=== PATIENT | female | born 1965 | race Caucasian/White ===

== ENCOUNTER 2017-07-04 18:46 | Emergency (ER) | payer OTHER ==
[~2017-07-04] VITALS: Ht 152.4 cm; Wt 112.3 kg
[~2017-07-04 18:46] MED LIST: ADVIN25/60 INH; IBUP-1450 PO; PRLSR20 PO
[2017-07-04 18:54] VITALS: TEMP 37; Ht 152.4 cm; Wt 112.3 kg
[2017-07-04] MEDS ORDERED: KETOROLAC TROMETHAMINE 30 MG/ML VIAL IV STA (19:03)
[2017-07-04] MEDS ORDERED: CLINDAMYCIN IV 900 MG in DEXTROSE 5% 100ML 100 ML IV ONE (19:15)
[2017-07-04] MEDS ORDERED: SODIUM CHLORIDE 0.9% 1000ML 1,000 ML IV ONE (19:15)
[2017-07-04] MEDS ORDERED: SULF800T23 PO (19:20)
[2017-07-04] MEDS ORDERED: KFL500HP PO (19:20)
[2017-07-04] MEDS ORDERED: BCTROWC TOP (19:20)
[2017-07-04] MEDS ORDERED: AZEL0.056 NAE (19:21)
[2017-07-04 19:42] LABS: BASO % 0.1 %; BASO ABS # 0.02 K/uL (0-0.2); COMPLETE YES; EOS % 1.7 %; HEMATOCRIT 37.5 % (37-47); IG% 0.4 %; LYMPH % 9.8 %; LYMPH ABS # 1.61 K/uL (1.2-3.4); MEAN CORPUSCULAR HEMOGLOBIN 31.3 pg (25-34); MEAN CORPUSCULAR HGB CONC 34.4 g/dl (32-36); MEAN PLATELET VOLUME 11.1 fL (7.4-10.4); MONO % 4.8 %; NEUT % 83.2 %; PLATELET COUNT 252 K/uL (130-400); RED BLOOD COUNT 4.12 M/uL (4.2-5.4); WHITE BLOOD COUNT 16.41 K/uL (4.8-10.8)
[2017-07-04 19:59] LABS: CREATININE 0.61 mg/dl (0.60-1.20); POTASSIUM 3.3 mmol/L (3.5-5.1)
[2017-07-04 20:02] LABS: ALB/GLOB RATIO 0.9 (0.9-2)
--- NOTE | 2017-07-04 20:12 | DIAGNOSTIC IMAGING REPORT ---
LEFT UPPER ARM SOFT TISSUE ULTRASOUND CLINICAL HISTORY: Left upper arm redness and swelling. Possible abscess. COMPARISON STUDY: No previous studies for comparison. FINDINGS: In the area of clinical concern, there is skin thickening and subcutaneous edema. There are no fluid collections to indicate an abscess. IMPRESSION: Skin thickening and edema, consistent with a cellulitis. No ultrasonographic evidence of an abscess Electronically signed by: Mp Chowdary M.D. 07/04/2017 8:11 PM Dictated Date/Time: 07/04/2017 8:10 PM
[2017-07-04] MEDS ORDERED: CLIN300C2 PO (20:59)
[2017-07-04 21:40] VITALS: BP 112/76; PULSE 91; O2SAT 95
--- NOTE | 2017-07-04 23:43 | EMERGENCY ROOM VISIT NOTE ---
History First contact with patient: 18:57 Chief Complaint: ARM PAIN Stated Complaint: LEFT ARM RED AND SWOLLEN History of Present Illness The patient is a 52 year old female who presents to the Emergency Room with complaints of pain and swelling to her left upper arm over the past 2 days. The patient went to an urgent care clinic initially where she was started on Bactrim and Keflex. She has not had improvement of her symptoms, and actually states that her swelling and pain has worsened while on the antibiotics. She has not had a fever today, but has been taking ibuprofen at home. The patient is not diabetic. She rates her total discomfort a 6/10. Review of Systems More than 10 systems were reviewed and otherwise negative with the exception of history of present illness. Past Medical/Surgical History Medical Problems: (1) Pneumonia Family History FH: heart disease Social History Smoking Status: Never Smoker Housing Status: lives with family Current/Historical Medications Scheduled Azelastine HCl (Azelastine HCl), 1 SPRAY AKBAR HS Cephalexin Monohydrate (Cephalexin), 500 MG PO TID Clindamycin Hcl (Cleocin), 300 MG PO QID Mupirocin (Bactroban 2% Oint), 1 DOSE TOP DIRECTED Omeprazole (Prilosec), 20 MG PO DAILY Sulfa/Trimethoprim (Bactrim Ds 800MG/160MG), 1 TAB PO BID Physical Exam Vital Signs Date Time Temp Pulse Resp B/P (MAP) Pulse Ox O2 Delivery O2 Flow Rate FiO2 07/04/17 21:40 91 20 112/76 95 07/04/17 20:45 93 20 102/69 91 Room Air 07/04/17 18:54 37.0 101 18 140/73 94 Room Air Pain Rating (0-10): 3.0 Physical Exam VITALS: Vitals are noted on the nurse's note and reviewed by myself. Vital signs stable. GENERAL: Well-developed, well-nourished, white female, who is in no acute distress and resting comfortably. Patient is cooperative with the examination. HEAD: Normocephalic atraumatic. HEART: Regular rate and rhythm without murmurs gallops or rubs. LUNGS: Clear to auscultation bilaterally without wheezes, rales or rhonchi. No retractions or accessory muscle use. ABDOMEN: Positive normal bowel sounds x 4. Soft, nontender, without masses or organomegaly. No guarding or rebound tenderness. MUSCULOSKELETAL: Full range of motion without joint tenderness in all extremities. NEURO: Patient was alert and oriented to person place and time. SKIN: The skin was with obvious cellulitis of the dorsal aspect of the left proximal upper extremity. This measures approximately 8 x 6 cm in total dimension. There is no obvious fluctuance or lymphangitic streaking. The area is erythematous and tender on palpation. Medical Decision & Procedures ER Provider Diagnostic Interpretation: LEFT UPPER ARM SOFT TISSUE ULTRASOUND CLINICAL HISTORY: Left upper arm redness and swelling. Possible abscess. COMPARISON STUDY: No previous studies for comparison. FINDINGS: In the area of clinical concern, there is skin thickening and subcutaneous edema. There are no fluid collections to indicate an abscess. IMPRESSION: Skin thickening and edema, consistent with a cellulitis. No ultrasonographic evidence of an abscess Laboratory Results 07/04/17 19:20 Red Blood Count 4.12, Mean Corpuscular Volume 91.0, Mean Corpuscular Hemoglobin 31.3, Mean Corpuscular Hemoglobin Concent 34.4, Mean Platelet Volume 11.1, Neutrophils (%) (Auto) 83.2, Lymphocytes (%) (Auto) 9.8, Monocytes (%) (Auto) 4.8, Eosinophils (%) (Auto) 1.7, Basophils (%) (Auto) 0.1, Neutrophils # (Auto) 13.65, Lymphocytes # (Auto) 1.61, Monocytes # (Auto) 0.79, Eosinophils # (Auto) 0.28, Basophils # (Auto) 0.02 07/04/17 19:20 Test 07/04/17 19:20 07/04/17 19:26 White Blood Count 16.41 K/uL (4.8-10.8) Red Blood Count 4.12 M/uL (4.2-5.4) Hemoglobin 12.9 g/dL (12.0-16.0) Hematocrit 37.5 % (37-47) Mean Corpuscular Volume 91.0 fL (80-100) Mean Corpuscular Hemoglobin 31.3 pg (25-34) Mean Corpuscular Hemoglobin Concent 34.4 g/dl (32-36) Platelet Count 252 K/uL (130-400) Mean Platelet Volume 11.1 fL (7.4-10.4) Neutrophils (%) (Auto) 83.2 % Lymphocytes (%) (Auto) 9.8 % Monocytes (%) (Auto) 4.8 % Eosinophils (%) (Auto) 1.7 % Basophils (%) (Auto) 0.1 % Neutrophils # (Auto) 13.65 K/uL (1.4-6.5) Lymphocytes # (Auto) 1.61 K/uL (1.2-3.4) Monocytes # (Auto) 0.79 K/uL (0.11-0.59) Eosinophils # (Auto) 0.28 K/uL (0-0.5) Basophils # (Auto) 0.02 K/uL (0-0.2) RDW Standard Deviation 45.2 fL (36.4-46.3) RDW Coefficient of Variation 13.5 % (11.5-14.5) Immature Granulocyte % (Auto) 0.4 % Immature Granulocyte # (Auto) 0.06 K/uL (0.00-0.02) Anion Gap 5.0 mmol/L (3-11) Est Creatinine Clear Calc Drug Dose 124.4 ml/min Estimated GFR () 121.7 Estimated GFR (Non- 105.0 BUN/Creatinine Ratio 21.0 (10-20) Calcium Level 9.0 mg/dl (8.5-10.1) Total Bilirubin 0.5 mg/dl (0.2-1) Aspartate Amino Transf (AST/SGOT) 22 U/L (15-37) Alanine Aminotransferase (ALT/SGPT) 35 U/L (12-78) Alkaline Phosphatase 93 U/L (45-117) Total Protein 7.4 gm/dl (6.4-8.2) Albumin 3.4 gm/dl (3.4-5.0) Globulin 4.0 gm/dl (2.5-4.0) Albumin/Globulin Ratio 0.9 (0.9-2) Bedside Lactic Acid Venous 0.64 mmol/L (0.90-1.70) Medications Administered Medications (Trade) Dose Ordered Sig/Lisa Route Start Time Stop Time Status Last Admin Dose Admin Clindamycin Phosphate 900 mg/ Dextrose 106 ml @ 100 mls/hr ONE ONCE IV 07/04/17 19:15 07/04/17 20:18 DC 07/04/17 19:36 100 MLS/HR Sodium Chloride 1,000 ml @ 999 mls/hr Q1H1M ONCE IV 07/04/17 19:15 07/04/17 20:15 DC 07/04/17 19:36 999 MLS/HR Ketorolac Tromethamine (Toradol Inj) 30 mg NOW STAT IV 07/04/17 19:03 07/04/17 19:08 DC 07/04/17 19:36 30 MG ED Course Physical exam and history were performed. Nursing notes, EMR, and Medication List were personally reviewed. Patient appears to have a cellulitis of the left upper extremity. She has been on antibiotics, but has not completed 2 full days of treatment. IV access was established and labs were obtained. The patient was hydrated with normal saline and given IV clindamycin after blood cultures were performed. I did elect for ultrasound of the extremity to insure no abscess or DVT. The patient's blood work is as above and was reviewed. She does have an elevated white blood cell count, which was expected. She does not have a gross anemia or significant electrolyte imbalance. Lactic acid was negative with cultures pending. Ultrasound is consistent with cellulitis with no obvious abscess. I discussed options of care with the patient, who feels comfortable with discharge home. This appears reasonable as long as she has a close follow-up. I will give her a continuation course of clindamycin and have her follow up with us or with her primary care physician in the next 2-3 days. She was certainly invited back sooner with any worsening or concerning symptoms. The patient voiced understanding and rated her discomfort a 2/10 at the time of departure. The chart was completed utilizing [employer] Speech Voice Recognition Software. Grammatical errors, random word insertions, pronoun errors, and incomplete sentences are an occasional consequence of this system due to software limitations, ambient noise, and hardware issues. Any formal questions or concerns about the content, text, or information contained within the body of this dictation should be directly addressed to the provider for clarification. . Medical Decision Differential diagnosis: Etiologies such as cellulitis, abscess, MRSA infection, DVT, necrotizing fasciitis, dermatitis, drug eruption, as well as others were entertained.. Medication Reconcilliation Current Medication List: was personally reviewed by me Blood Pressure Screening Patient's blood pressure: Normal blood pressure Impression Primary Impression: Cellulitis of left upper arm Departure Information Dispostion Home / Self-Care Condition GOOD Prescriptions Clindamycin Hcl (CLEOCIN) 300 Mg Cap 300 MG PO QID for 10 Days, #40 CAP Prov: Leo Hendrickson PA-C 07/04/17 Forms HOME CARE DOCUMENTATION FORM, IMPORTANT VISIT INFORMATION Patient Instructions My [facility] Additional Instructions You were seen and evaluated today on an emergency basis only. This is not a substitute for, or an effort to provide, complete comprehensive medical care. It is not possible to recognize and treat all injuries or illnesses in a single emergency department visit. For this reason it is recommended that you followup with your primary care physician or back in the emergency department in 48-72 hours for recheck of your condition. Take clindamycin 300 mg 4 times daily for the next 10 days for your infection. For baseline pain relief you may alternate ibuprofen and acetaminophen every 4 hours for pain control. Take 600 mg ibuprofen (Advil) and then 4 hours later take 1000 mg acetaminophen (Tylenol). Do not take more than 3000 mg acetaminophen in a single day. You are welcome to return to the emergency department anytime with new, worsening, or concerning symptoms.
== END 2017-07-04 21:35 | disposition home or self-care (01) ==
LOC: C.EDB 18:47
DX: L03.114 Cellulitis of left upper limb (principal); Z79.899 Other long term (current) drug therapy; Z82.49 Family history of ischemic heart disease and other diseases of the circulatory system

== ENCOUNTER → 2018-01-13 | Outpatient (CLI) | payer OTHER ==
[~2018-01-13] MED LIST changes: -ADVIN25/60 INH; +AZEL0.056 NAE; +BCTROWC TOP; -IBUP-1450 PO; +KFL500HP PO; +SULF800T23 PO
--- NOTE | 2018-01-13 11:02 | DIAGNOSTIC IMAGING REPORT ---
CHEST 2 VIEWS ROUTINE HISTORY: Cough. COMPARISON: Chest 01/04/2016. FINDINGS: The lungs are clear. Cardiac silhouette is normal in size. No pleural effusions. No pneumothorax. IMPRESSION: No acute process. Electronically signed by: Richard Fields M.D. 01/13/2018 11:01 AM Dictated Date/Time: 01/13/2018 10:59 AM
== END | disposition home or self-care (01) ==
LOC: C.RAD1850 10:36
PROVIDERS: ATTEND Physician Assistant
DX: R05 Cough (principal)

== ENCOUNTER → 2018-01-24 | Outpatient (CLI) | payer OTHER ==
--- NOTE | 2018-01-24 08:51 | DIAGNOSTIC IMAGING REPORT ---
SINUSES MIN 3 VIEWS ROUTINE CLINICAL HISTORY: ASTHMA,COUGH dyspnea COMPARISON STUDY: None FINDINGS: Considerable mucosal thickening of the maxillary sinuses. Mild mucosal thickening frontal sinuses. Sphenoid sinuses appear clear. No bony destructive change. IMPRESSION: Generalized mucosal thickening of the frontal and maxillary sinuses. The above report was generated using voice recognition software. It may contain grammatical, syntax or spelling errors. Electronically signed by: Isidoro Martínez M.D. 01/24/2018 8:50 AM Dictated Date/Time: 01/24/2018 8:49 AM
--- NOTE | 2018-01-24 08:53 | DIAGNOSTIC IMAGING REPORT ---
CHEST 2 VIEWS ROUTINE CLINICAL HISTORY: ASTHMA,COUGH dyspnea COMPARISON STUDY: 01/13/2018 FINDINGS: The bones soft tissues and hemidiaphragms are normal. The cardiomediastinal silhouette is normal. The lungs are clear. The pulmonary vasculature is normal. IMPRESSION: Negative chest. The above report was generated using voice recognition software. It may contain grammatical, syntax or spelling errors. Electronically signed by: Isidoro Martínez M.D. 01/24/2018 8:52 AM Dictated Date/Time: 01/24/2018 8:51 AM
== END | disposition home or self-care (01) ==
LOC: C.RAD1850 08:33
PROVIDERS: ATTEND Physician Assistant
DX: J45.909 Unspecified asthma, uncomplicated (principal); R05 Cough

== ENCOUNTER → 2018-03-03 | Outpatient (CLI) | payer OTHER ==
--- NOTE | 2018-03-03 14:27 | DIAGNOSTIC IMAGING REPORT ---
LEFT ANKLE 3 VIEWS CLINICAL HISTORY: Left ankle swelling. FINDINGS: 3 views of the left ankle are obtained. No prior studies are available for comparison at the time of dictation. The skeletal structures are well mineralized for age. No fracture is seen. The ankle mortise is intact. Large dorsal and plantar calcaneal enthesophytes are identified. Degenerative spurring is noted along the anterior tibial plafond and the dorsal aspect of the tarsal bones. There is a small joint effusion. Soft tissue edema is present around the ankle. IMPRESSION: 1. Soft tissue swelling and joint effusion. No left ankle fracture is seen. 2. Large heel spurs. Electronically signed by: Ari Miner M.D. 03/03/2018 2:26 PM Dictated Date/Time: 03/03/2018 2:25 PM
== END | disposition home or self-care (01) ==
LOC: C.RAD1850 14:09
PROVIDERS: ATTEND Internal Medicine
DX: M25.572 Pain in left ankle and joints of left foot (principal); M77.32 Calcaneal spur, left foot; M25.472 Effusion, left ankle

== ENCOUNTER → 2018-07-02 | Outpatient (CLI) | payer OTHER ==
[2018-07-02 12:57] LABS: HEMATOCRIT 41.1 % (37-47); HEMOGLOBIN 13.3 g/dL (12.0-16.0); MEAN CELL VOLUME 90.7 fL (80-100); MEAN CORPUSCULAR HEMOGLOBIN 29.4 pg (25-34); MEAN CORPUSCULAR HGB CONC 32.4 g/dl (32-36); MEAN PLATELET VOLUME 11.5 fL (7.4-10.4); PLATELET COUNT 271 K/uL (130-400); RED CELL DISTRIBUTION WIDTH CV 14.2 % (11.5-14.5); RED CELL DISTRIBUTION WIDTH SD 46.7 fL (36.4-46.3); WHITE BLOOD COUNT 7.76 K/uL (4.8-10.8)
[2018-07-02 14:20] LABS: ALBUMIN 3.4 gm/dl (3.4-5.0); ALKALINE PHOSPHATASE 70 U/L (45-117); ALT/SGPT 20 U/L (12-78); AST/SGOT 12 U/L (15-37); BLOOD UREA NITROGEN 15 mg/dl (7-18); CALCIUM 8.1 mg/dl (8.5-10.1); CARBON DIOXIDE 25 mmol/L (21-32); CHOLESTEROL 178 mg/dl (0-200); CREATININE 0.53 mg/dl (0.60-1.20); GLUCOSE 105 mg/dl (70-99); LDL CHOLESTEROL CALCULATED 109 mg/dl; POTASSIUM 3.8 mmol/L (3.5-5.1); SODIUM 138 mmol/L (136-145); TOTAL PROTEIN 6.9 gm/dl (6.4-8.2)
== END | disposition home or self-care (01) ==
LOC: C.LABPVFM 08:45
PROVIDERS: ATTEND Internal Medicine
DX: Z00.00 Encounter for general adult medical examination without abnormal findings (principal); R53.83 Other fatigue